=== PATIENT | female | born 2000 | race Caucasian/White ===

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

== ENCOUNTER 2020-05-27 09:42 | Emergency (ER) | payer OTHER, SELFPAY ==
[2020-05-27 09:43] VITALS: BP 98/68; PULSE 83; RESP 16; TEMP 36.4; O2SAT 99; BMI 21.9
[2020-05-27] MEDS: DiphenhydrAMINE 50 MG/ML Syringe 25 MG IV (10:25)
[2020-05-27 10:26] LABS: Absolute Lymphocyte Count 1.87 X10^3/uL (0.83-4.51); Absolute Neutrophil Count 2.4 X10^3/uL (2.0-7.7); Basophil# 0.03 X10^3/uL; Basophil% 0.6 % (0-1); Eosinophil# 0.07 X10^3/uL; Eosinophils% 1.5 % (0-5); Hematocrit 40.8 % (37-47); Hemoglobin 13.9 g/dL (12.0-15.0); Lymphocyte # 1.87 X10^3/ul (4.0); Lymphocyte % 40.5 % (19-41); Mean Corp Hgb Conc 34.1 g/dL (32-36); Mean Corpuscular Hgb 29.6 pg (27.0-32.0); Mean Platelet Vol. 10.1 fl (6.2-12.0); Monocyte# 0.29 X10^3/uL; Monocyte% 6.3 % (0-10); NRBC Flagged by Analyzer 0 % (0-5); Neutrophil # 2.35 X10^3/uL (2.7-7.7); Neutrophil % 50.9 % (47-70); Platelet Count 277 K/mm3 (150-450); RBC Distribution Width CV 12.3 % (11.6-14.6); Red Blood Count 4.69 M/mm3 (4.2-5.4); White Blood Count 4.6 K/mm3 (4.4-11.0)
[2020-05-27] MEDS: 0.9% Normal Saline 1,000 ML 1000 ML IV (10:26)
[2020-05-27] MEDS: Ketorolac 30 MG/ML Syringe IV (10:26)
[2020-05-27] MEDS: Metoclopramide 10 MG/2 ML Vial IV (10:27)
[2020-05-27 10:28] VITALS: BP 101/78; BP 110/73; BP 112/87; PULSE 63; PULSE 78; PULSE 93
[2020-05-27 10:35] LABS: Internal QC Validated? YES +Cl - CLEAR BKGD; Pregnancy, Serum, hCG Quali. NEGATIVE Negative
[2020-05-27 10:43] LABS: ALB/GLOB Ratio 1.2 RATIO (0.9-2.4); AST(SGOT) 11 U/L (15-37); Alanine Aminotransfer ALT/SGPT 15 U/L (13-56); Albumin, Serum 3.8 g/dL (3.2-5.0); Alkaline Phosphatase 59 U/L (45-117); Anion Gap 4 (5-15); BUN 9 mg/dL (7-18); BUN/Creat Ratio 11.7 RATIO (10-20); Calcium,Total 8.8 mg/dL (8.5-10.1); Chloride 112 mmol/L (98-107); Creatinine, Serum 0.77 mg/dL (0.55-1.02); EST Glomerular Filtration Rate 102 mL/min (>60); Est Glom Filt Rate - Afr Amer 124 mL/min (>60); Estimated Creatinine Clearance 92.18 ml/min; Globulin 3.1 g/dL (2.2-4.2); Glucose 79 mg/dL (74-106); Lipase 94 U/L (73-393); Protein, Total 6.9 g/dL (6.4-8.2); Sodium Level 143 mmol/L (136-145)
[2020-05-27 10:45] LABS: Bacteria 0 SEEN /hpf (None Seen); Mucous, Urine 0 SEEN /hpf (<or=2+); Red Blood Cells-Urine 0 SEEN /hpf (0-5); White Blood Cells 0 SEEN /hpf (0-5)
[2020-05-27 11:00] LABS: Color, Urine Yellow (Yellow); Glucose, Dipstick Normal (Normal); Ketone-Dipstick Negative (Negative); Leukocyte Esterase-Dipstick Negative /ul (Negative); Nitrite-Dipstick Negative (Negative); Occult Blood-Urine Negative /ul (Negative); Protein-Dipstick Negative (Negative); Urine Bilirubin Dipstick Negative (Negative); Urine Clarity Sl. Cloudy (Clear); Urine Urobilinogen Normal (Normal); Urine pH 6.5 (5.0 - 8.0)
[2020-05-27 11:07] LABS: Squamous Epithelial Cells - UA 0-5 SEEN /hpf (5-10)
--- NOTE | 2020-05-27 11:28 | ED.VISSUMM ---
- ER Visit Summary Date of Service: 05/27/20 Chief Complaint: Not feeling well [] History of Present Illness: The patient is a 20 F [presents to the emergency department complaint of feeling dizzy and lightheaded for the last 2 days. Patient states symptoms are worse with standing. Patient's had nausea but no vomiting. She describes some head pressure. She describes an photophobia. Patient does have history of chronic migraines. Patient also with prior history of hepatocellular carcinoma and is more than 5 years out since her resection. Patient denies illness otherwise and has had no fever or cough. No exposures to anybody with COVID-19. She did have abdominal pain last evening and was curled up in a ball. The abdominal pain is mostly resolved currently. Patient last had an MRI of her abdomen a year ago and was clear.] Patient unsure of her last bowel movement. Her last menstrual period was 1 week ago. Patient denies urinary symptoms. Physical Examination: [HEENT-PERRLA, EOMI. Cranial nerves II through XII grossly intact. TMs clear. Mucous membranes moist. No adenopathy. Cardiovascular-regular rate and rhythm without murmur or ectopy Lungs-clear to auscultation, chest wall stable without crepitus or subcu emphysema Abdomen-normoactive bowel sounds, soft, nontender, no rebound or rigidity, no peritoneal signs. Extremities-intact ?4, normal range of motion, normal pulses, atraumatic] Test Results: [CBC with differential was normal. Chemistries unremarkable. LFTs normal. Lipase was 99. Urine normal. hCG negative. Orthostatic vital signs were negative.] Emergency Department Course and Treatment: [IV line established. Patient was given a liter mostly fluid bolus. Patient given Reglan, Benadryl, and Toradol, and her headache resolved.] Treatment Plan: [Advised to push fluids. Patient to follow-up with her primary care physician in 3 to 5 days. Patient advised to return if worsening pain, fever, vomiting, or condition should worsen anyway.] Disposition: [Discharged home in stable condition] Impression: [Dizziness-etiology uncertain Migrainous cephalgia] This note was generated with MyBuilderation software. It may contain incorrect words, spelling, and punctuation that were not noted in review of the chart prior to signing ED Disposition - Plan for ED Patient: Referrals: Thomas Mccrary MD [Primary Care Provider] -
--- NOTE | 2020-05-27 11:30 | ED.DEP ---
ED Disposition - Plan for ED Patient: Instructions: ED, Migraine (Classical), ED Dizziness [facility] Referrals: Thomas Mccrary MD [Primary Care Provider] - 3-5 Days
[2020-05-27 11:33] VITALS: BP 129/84; PULSE 67; RESP 15; O2SAT 99
== END 2020-05-27 11:37 | disposition home or self-care (01) ==
LOC: ED 10:49
PROVIDERS: Emergency Provider Emergency Medicine; PCP Pediatrics
DX: R42 Dizziness and giddiness (principal); R51 Headache
CPT/HCPCS: 80053; 81001; 83690; 84703; 85025; 96374; 96375; 99284; J7030; A4216

== ENCOUNTER 2021-11-24 08:27 | Outpatient (CLI) | payer OTHER, SELFPAY ==
[2021-11-24 11:02] LABS: Hepatitis B Surface Antibody Non-Reactive
[2021-11-26 14:10] LABS: Hepatitis A IgM Antibody Negative (Negative); Hepatitis B Core AB IgM Negative (Negative)
[2021-11-26 14:26] LABS: Hep C Antibodies <0.1 s/co ratio (0.0-0.9); Hepatitis A AB, Total Positive (Negative)
[2021-12-01 09:32] LABS: HEPATITIS B SURFACE AG Confirm. indicated (Negative)
== END 2021-11-24 23:59 | disposition home or self-care (01) ==
PROVIDERS: PCP Pediatrics; Referring Provider Dermatology; Visit Provider Dermatology
DX: L43.8 Other lichen planus (principal)
CPT/HCPCS: 36415; 80074; 86706; 86708